=== PATIENT | male | born 1985 | race Hispanic/Latino ===

== ENCOUNTER 2023-01-31 15:39 | Inpatient (IN) | payer SELFPAY ==
--- NOTE | ~2023-01-31 | US_ITS ---
EXAMINATION: US abdomen limited DATE: 02/01/2023 09:33 INDICATION: Pancreatitis TECHNIQUE: Multiple grayscale and Doppler ultrasound images of the abdomen were obtained. COMPARISON: CT dated 01/31/2023 FINDINGS: Visualized body of the pancreas appears normal. The regions of the pancreatic head and tail are obscu red. Liver has normal echogenicity and contour, with a smooth surface. No liver lesion identified. No intrahepatic biliary duct dilation suspected. Portal venous flow was seen in the hepatopetal, normal direction and has normal Doppler waveform. The gallbladder is normal in appearance. There is no cho lelithiasis. The common bile duct measures 5 mm, which is normal. Sonographic Mcallister sign was reporte d as negative by the legal administrative assistant.Visualized portions of the right kidney demonstrate normal echogenic ity and contour with no hydronephrosis. The visualized proximal inferior vena cava is normal. IMPRESSION: 1. Normal right upper quadrant ultrasound. Reviewed, dictated and finalized at location A.
--- NOTE | ~2023-01-31 | CT_ITS ---
EXAMINATION: CT abdomen pelvis w con INDICATION: Epigastric abdominal pain and nausea TECHNIQUE: Computed tomographic images of the abdomen and pelvis were obtained after the administrati on of 100 cc of Omnipaque 350 intravenous contrast. The dose-length product (DLP) was 551.97 mGy-cm. Automated exposure control and iterative reconstruction technique were employed. COMPARISON: None available FINDINGS: Minimal dependent atelectasis is present in the lung bases. The heart size is normal. The l iver, spleen, gallbladder, and adrenal glands are normal. There is mild edema in the head of the panc reas. There is a small amount of fluid surrounding the pancreas and extending inferiorly into the ret roperitoneum on the right. There is the kidneys are unremarkable. No pathologically enlarged abdomina l or pelvic lymph nodes are identified. No free intraperitoneal gas or evidence of bowel obstruction. IMPRESSION: 1. Probable acute interstitial edematous pancreatitis with acute peripancreatic fluid collection. Dif ferential would include duodenitis. Reviewed, dictated and finalized at location F. IMPRESSION: 1. Probable acute interstitial edematous pancreatitis with acute peripancreatic fluid collection. Differential would include duodenitis.
--- NOTE | ~2023-01-31 | XR_ITS ---
EXAMINATION: XR chest 1V portable INDICATION: Fever TECHNIQUE: Portable AP chest at 1242 hours COMPARISON: None available FINDINGS: The lungs are free of acute opacities. No pleural effusion or pneumothorax. The cardiomedia stinal silhouette is normal. IMPRESSION: 1. No acute cardiopulmonary abnormality. Reviewed, dictated and finalized at location A.
[2023-01-31 15:49] VITALS: BP 132/81; PULSE 90; RESP 16; TEMP 36.7; O2SAT 97
--- NOTE | 2023-01-31 15:52 | ED.ABDPAIN ---
HPI - Abdominal Pain General Chief Complaint: Abdominal Pain Stated Complaint: ABD PAIN Time Seen by Provider: 01/31/23 15:50 Source: patient and family Mode of arrival: ambulatory Limitations: no limitations History of Present Illness HPI narrative: Patient is 37 years old male came to the emergency room complaining of epigastric pain pressure time started last night, intermittent, worse with eating, better with Pepto-Bismol and ibuprofen. Associated with chills, he denies any fever or vomiting. No history of abdominal surgery. Patient does not smoke or uses drugs but drinks occasionally. Related Data Home Medications Medication Instructions Recorded Confirmed No Home Medications 01/31/23 01/31/23 Allergies Allergy/AdvReac Type Severity Reaction Status Date / Time No Known Allergies Allergy Verified 01/31/23 15:58 Review of Systems Review of Systems: All systems reviewed & are unremarkable except as noted in HPI and below Exam Narrative: General appearance: Well-developed, well-nourished Skin: Normal color Head: Normocephalic, nontraumatic Eyes: Clear conjunctiva ENT: Oropharynx normal, ears normal, nose normal Neck: Supple, nontender Chest and respiratory: Airway patent, no respiratory distress, no accessory muscle use Heart: Regular rate/rhythm Abdomen: Soft, mild tenderness of the epigastric areas, no organomegaly, quiet bowel sounds Vascular: Normal peripheral pulses, normal capillary refill. Musculoskeletal: Normal range of motion, nontender back Neurologic: Alert and oriented ?3, EXECUTIVE DIRECTOR is normal as tested, no gross motor deficit Course Vital Signs Vital signs: Vital Signs Temperature 36.7 C 01/31/23 15:49 Pulse Rate 90 01/31/23 15:49 Respiratory Rate 16 01/31/23 15:49 Blood Pressure 132/81 01/31/23 15:49 Pulse Oximetry 97 01/31/23 15:49 Oxygen Delivery Room Air 01/31/23 15:49 Temperature 36.7 C 01/31/23 15:49 Pulse Rate 81 01/31/23 17:27 Respiratory Rate 18 01/31/23 17:27 Blood Pressure 128/87 01/31/23 17:27 Pulse Oximetry 96 01/31/23 17:27 Oxygen Delivery Room Air 01/31/23 15:49 MDM - Abdominal Pain MDM Narrative Medical decision making narrative: 37 years old male came with intermittent epigastric pain, differential diagnosis include gastritis, esophagitis, pancreatitis, cholecystitis Physical exam showed mild to moderate tenderness in the epigastric area. Work-up today showed increase WBC 15.3, glucose of 379, alkaline phosphatase 216, lipase 545 chest pain and shortness urine showed 3+ glucose, CAT scan of the abdomen and pelvis showed possible acute pancreatitis, duodenitis Patient is nondiabetic, diagnosis today is new diagnosis of diabetes, and pancreatitis. Patient will be admitted to the hospitalist for further evaluation. Patient have strong family history of diabetes Differential Diagnosis Differential diagnosis: Likely abdominal pain, constipation, diverticulitis, gastroenteritis and pancreatitis Lab Data 01/31/23 16:01 01/31/23 16:01 Labs: Lab Results 01/31/23 01/31/23 01/31/23 Range/Units 16:01 16:01 16:01 WBC Pending RBC Pending Hgb Pending Hct Pending MCV Pending MCH Pending MCHC Pending RDW Pending Plt Count Pending MPV Pending Immature Gran % (Auto) Pending Neut % (Auto) Pending Lymph % (Auto) Pending Ashe % (Auto) Pending Eos % (Auto) Pending Baso % (Auto) Pending Lymph # (Auto) Pending Ashe # (Auto) Pending Eos # (Auto) Pending Baso # (Auto) Pending Abs Immat Gran (auto) Pending Absol
[2023-01-31] MEDS: SODIUM CHLORIDE 0.9% IV 1,000 ML 999 ML IV CONT ×2 (16:02→18:30)
[2023-01-31 16:10] LABS: Appearance Urine Clear (Clear); Bacteria Urine None Seen /hpf; Bilirubin Urine Negative (Negative); Blood Urine 1+ (Negative); Color Urine Yellow (Yellow); Glucose Urine UA 3+ mg/dL (Negative); Ketones Urine Trace mg/dL (Negative); Leukocyte Esterase Ur Negative LEU/UL (Negative); Nitrate Urine Negative (Negative); Non Pathogenic Casts 0-2; Protein Urine Negative (Negative); RBC Urine 0-2 /hpf (0-2); Squamous Epithelial Cell Urine None seen /hpf (Few); Urobilinogen Urine 0.2 mg/dL (<2.0); WBC Urine 0-5 /hpf; pH Urine 5.5 (5.0-9.0)
[2023-01-31 16:22] LABS: Add Urine Microscopic? YES; Specific Grav Ur 1.044 (1.001-1.035)
[2023-01-31 16:29] LABS: Alanine Aminotransferase 39 U/L (6-50); Albumin Level 4.2 g/dL (3.5-5.1); Alkaline Phosphatase 216 U/L (38-126); Anion Gap 13 mmol/L (8-16); Aspartate Amino Transferase 25 U/L (17-59); Bilirubin,Total 0.6 mg/dL (0.2-1.3); Blood Urea Nitrogen 16 mg/dL (9-20); Calcium 8.9 mg/dL (8.4-10.2); Carbon Dioxide 22 mmol/L (22-30); Chloride 98 mmol/L (98-107); Estimated CRCL calculation 116 ml/min; Estimated Glomerular Filt Rate > 60; Glucose 379 mg/dL (65-110); Lipase 545 U/L (23-300); Sodium 133 mmol/L (137-145)
[2023-01-31 17:13] LABS: Basophils Absolute Auto 0.1 K/mm3 (0.0-0.1); Basophils Percent Auto 0.5 % (0.2-1.2); Eosinophils Absolute Auto 0.5 K/mm3 (0-0.3); Eosinophils Percent Auto 3.1 % (0-4.4); Immature Granulocyte Absolute 0.09 K/mm3 (0.00-0.031); Immature Granulocyte Percent A 0.6 % (0-0.5); Lymphocytes Absolute Auto 3.59 K/mm3 (0.9-3.2); Lymphocytes Percent Auto 23.5 % (18.3-44.2); Monocytes Percent Auto 13.1 % (2.6-8.5); Neutrophils Percent Auto 59.2 % (45.5-73.1); Platelet Count Result 176 k/mm3 (150-375); Red Blood Count 4.54 M/mm3 (4.6-6.20); Red Cell Distribution Width 14.4 % (11.5-14.5); White Blood Count 15.3 K/mm3 (4.5-10.0)
[2023-01-31 17:27] VITALS: BP 128/87; PULSE 81; RESP 18; O2SAT 96
[2023-01-31 18:03] LABS: Hemoglobin 11.5 g/dL (14.0-18.0)
[2023-01-31 18:04] LABS: Hematocrit 27.3 % (42.0-52.0); Mean Corpuscular HGB Conc 42.1 g/dl (32-36); Mean Corpuscular Hemoglobin 34.7 pg (26-34)
[2023-01-31] MEDS: PANTOPRAZOLE SODIUM IV 40 MG VIAL IV PUSH (18:30)
[2023-01-31 18:49] VITALS: BP 129/83; PULSE 84; RESP 18; O2SAT 99
--- NOTE | 2023-01-31 19:00 | PM.IMHP ---
H&P: HPI History of Present Illness Date/Time: 01/31/23 19:00 Chief Complaint: Abdominal pain. Narrative: This is a pleasant 37-year-old male with no reported medical history who presented to the emergency department via private vehicle from home for evaluation of abdominal pain. Patient provides the following history. He reports a fairly sudden onset of nausea and epigastric pain last evening which he describes as severe pressure. The pain does not radiate. It is worse with palpation, movement, and eating. Ibuprofen and Pepto Bismol did not help his symptoms much. CT of the abdomen and pelvis showed probable acute interstitial edematous pancreatitis with acute peripancreatic fluid collection with a differential to include duodenitis. His serum was lipemic and labs were significant for a lipase of 545, WBC 15.3, hemoglobin 11.5, sodium 133, glucose 379, alkaline phosphatase 216, triglycerides 2606. He drinks 8 beers or so on the weekends. He does not take medications at home. He has no known history of pancreatitis but reports have a similar episode about 7 months ago which was self-limiting, not as severe, and it only lasted a day or two. He has occasional heart burn but nothing significant. He has no history of diabetes but both of his parents are diabetics. He endorses an unintentional 60 pound weight loss in the last 2 years. He has always consumed a lot of water and that is unchanged. No blurry vision, neuropathy symptoms, rashes, or non-healing wounds. At this time he is being admitted to the ICU on insulin drip for hypertriglyceridemia in the setting of pancreatitis. Review of Systems Review of Systems: Twelve systems were reviewed. No fever, chills, or sweats. Reports a mild, scratchy throat and some sinus congestion. No cough or shortness of breath. No chest pain. Except as documented, all other systems were reviewed and are negative. [facility] Past Medical History Medical History (Updated 01/31/23 @ 22:50 by Shayy Cook PA-C) No significant past medical history Surgical History Surgical History (Updated 01/31/23 @ 22:45 by Shayy Cook PA-C) No history of previous surgery Family History Family History Father Diabetes mellitus Mother Diabetes mellitus Heart disease Hypertension Social History Social History (Updated 01/31/23 @ 22:46 by Shayy Cook PA-C) Social History: Surrogate medical decision maker: Angeles Pagan, friend. Code status: Full code. Smoking status: Never smoker Alcohol intake: current Drinks per week: 8 Substance use: never Lack of Transportation: No Lack of Food: Never True Current Housing: Decline to Answer Concerned About Future Housing: Decline to Answer Difficulty Paying Gas/Electric Bills: Decline to Answer Difficulty Paying for Meds: Decline to Answer Currently Unemployed: Decline to Answer Education: Decline to Answer Difficulty w/ Childcare or Family Care: Decline to Answer Additional living arrangements comments: Lives in [place] with a cousin. Additional occupation/education comments: Landscaping. Spiritual care concerns: No Meds Home Medications and Allergies Home Medications Medication Instructions Recorded Confirmed Type No Home Medications 01/31/23 01/31/23 History Allergies Allergy/AdvReac Type Severity Reaction Status Date / Time No Known Allergies Allergy Verified 01/31/23 15:58 Vital Signs Vital Signs - 24 hr 01/31/23 15:49 01/31/23 17:27 Temperature 98.1 F Pulse Rate 90 81 Respiratory Rate 16 18 Blood Pressure 132/81 128/87 Pulse Oximetry 97 96 Oxygen Delivery Room Air Exam Narrative: General: Mildly ill-appearing gentleman the semi-Tran position in bed. Weight: 83.1 kg. BMI: 29.6. HEENT: Normocephalic, atraumatic. PERRL, EOMI. Sclera anicteric. Conjunctiva mildly injected. Tacky mucous membranes. Neck: Suppl
[2023-01-31] MEDS: SODIUM CHLORIDE 0.9% IV 1,000 ML 150 ML IV CONT (19:04)
[2023-01-31 19:17] LABS: Triglycerides 2606 mg/dL (<150)
[2023-01-31 20:07] LABS: Anion Gap 10 mmol/L (8-16); Blood Urea Nitrogen 15 mg/dL (9-20); Calcium 7.7 mg/dL (8.4-10.2); Carbon Dioxide 22 mmol/L (22-30); Chloride 103 mmol/L (98-107); Estimated CRCL calculation 158 ml/min; Estimated Glomerular Filt Rate > 60; Glucose 256 mg/dL (65-110); Magnesium 1.9 mg/dL (1.6-2.3); Phosphorus 3.5 mg/dL (2.5-4.5); Potassium 3.8 mmol/L (3.4-5.0); Sodium 135 mmol/L (137-145)
--- NOTE | 2023-01-31 20:19 | PC.NURSE ---
consulted hospitalist about a sugar of 243 mg/dL- states to start insulin at 5 units VORB.
[2023-01-31] MEDS: INSULIN HUMAN REGULAR (*BKC) 100 UNITS in SODIUM CHLORIDE 0.9% IV 99 ML IV CONT (20:21)
[2023-01-31 20:31] LABS: Glucose Point of Care 243 mg/dl (65-105)
--- NOTE | 2023-01-31 20:32 | PC.NURSE ---
This patient, Sharon David, was admitted to Intensive Care Unit-11. Patient/family oriented to hospital policies and general routines including ID bracelet, bed and alarms, visiting hours, pain management, procedures, bathroom and other care routines, personal items, smoking policy, room service/diet, and visiting hours. Information on how to activate the Rapid Response Team has been discussed. Patient/Family are encouraged to report perceived risks to care and to ask questions if they do not understand what they are told or what they should do.
[2023-01-31 20:41] VITALS: BP 142/64; PULSE 82; RESP 16; O2SAT 100
[2023-01-31 20:45] VITALS: BP 137/80; PULSE 83; RESP 18; TEMP 36.8; O2SAT 98; BMI 29.5
[2023-01-31] MEDS: HYDROmorphone HCL INJ (*CRX) 1 MG/ML SYR 0.5 MG IV PUSH (21:06)
[2023-01-31] MEDS: KCL 20 MEQ/D5/0.45% SOD CHL 1,000 ML 150 ML IV CONT (21:06)
[2023-01-31 21:17] LABS: Glucose Point of Care 258 mg/dl (65-105)
[2023-01-31 22:00] VITALS: BP 126/75; PULSE 100; RESP 23; O2SAT 95
[2023-01-31 22:16] LABS: Glucose Point of Care 239 mg/dl (65-105)
[2023-02-01] VITALS (14 sets, daily range): BP systolic 117–139; BP diastolic 55–84; PULSE 92–111; RESP 18–28; TEMP 36.4–37.3; O2SAT 94–98
[2023-02-01 00:29] LABS: Glucose Point of Care 221 mg/dl (65-105)
[2023-02-01 00:29] LABS: Glucose Point of Care 202 mg/dl (65-105)
[2023-02-01 01:30] LABS: Glucose Point of Care 183 mg/dl (65-105)
[2023-02-01 02:23] LABS: Glucose Point of Care 147 mg/dl (65-105)
[2023-02-01] MEDS: MORPHINE SULFATE (*CRX) 4 MG/ML INJ IV PUSH ×4 (02:33→22:08)
[2023-02-01 03:22] LABS: Glucose Point of Care 134 mg/dl (65-105)
[2023-02-01] MEDS: KCL 20 MEQ/D5/0.45% SOD CHL 1,000 ML 150 ML IV CONT ×3 (03:53→17:34)
[2023-02-01 04:54] LABS: Glucose Point of Care 141 mg/dl (65-105)
[2023-02-01 05:57] LABS: Glucose Point of Care 175 mg/dl (65-105)
[2023-02-01 06:13] LABS: Alanine Aminotransferase 29 U/L (6-50); Albumin Level 3.7 g/dL (3.5-5.1); Alkaline Phosphatase 122 U/L (38-126); Anion Gap 6 mmol/L (8-16); Aspartate Amino Transferase 24 U/L (17-59); Bilirubin,Total 0.7 mg/dL (0.2-1.3); Blood Urea Nitrogen 9 mg/dL (9-20); Calcium 7.9 mg/dL (8.4-10.2); Carbon Dioxide 25 mmol/L (22-30); Chloride 103 mmol/L (98-107); Cholesterol 145 mg/dL (0-200); Estimated CRCL calculation 208 ml/min; Estimated Glomerular Filt Rate > 60; Glucose 153 mg/dL (65-110); Lipase 388 U/L (23-300); Magnesium 1.8 mg/dL (1.6-2.3); Potassium 3.5 mmol/L (3.4-5.0); Sodium 134 mmol/L (137-145)
[2023-02-01 06:37] LABS: Thyroid Stimulating Hormone Reflex 0.392 uIU/mL (0.465-4.68)
[2023-02-01 07:55] LABS: Glucose Point of Care 154 mg/dl (65-105)
[2023-02-01 08:08] LABS: Hematocrit 40.9 % (42.0-52.0); Hemoglobin 15.3 g/dL (14.0-18.0); Red Blood Count 4.81 M/mm3 (4.6-6.20); White Blood Count 16.8 K/mm3 (4.5-10.0)
[2023-02-01 08:09] LABS: Mean Corpuscular HGB Conc 37.4 g/dl (32-36); Mean Corpuscular Hemoglobin 31.8 pg (26-34); Mean Platelet Volume 12.9 fl (7.4-10.4); Platelet Count Result 166 k/mm3 (150-375); Red Cell Distribution Width 15.5 % (11.5-14.5)
--- NOTE | 2023-02-01 08:32 | WPDCNINT ---
Assessment and Plan Assessment and plan (1) Acute pancreatitis: Code(s): K85.90 - Acute pancreatitis without necrosis or infection, unspecified Status: Acute Assessment and Plan: Acute pancreatitis likely secondary to hypertriglyceridemia although alcohol is a possibility CT scan shows Probable acute interstitial edematous pancreatitis with acute peripancreatic fluid collection. Differential would include duodenitis. Right upper quadrant ultrasound is ordered and pending LFTs unremarkable Patient clinically feels better and denies any nausea vomiting at this time although his abdominal pain is per present but improved Will do a trial of clear liquid diet and see if patient tolerates Hold antibiotics at this time-see below IV fluids Treat hypertriglyceridemia as below (2) Hypertriglyceridemia: Code(s): E78.1 - Pure hyperglyceridemia Status: Acute Assessment and Plan: Triglyceride level to 2606 on presentation Could be hereditary hyperlipidemia as patient has family history or this could be due to uncontrolled diabetes Continue insulin infusion with IV fluids with dextrose to try to bring down triglyceride level below 1000 Will start p.o. medications eventually Monitor daily levels (3) New onset type 2 diabetes mellitus: Code(s): E11.9 - Type 2 diabetes mellitus without complications Status: Acute Assessment and Plan: On presentation patient's blood sugar was 379. No history of diabetes mellitus but does have a strong family history of diabetes HbA1c is pending Continue insulin infusion at this time (4) Leukocytosis: Code(s): D72.829 - Elevated white blood cell count, unspecified Status: Acute Assessment and Plan: Likely secondary to SIRS Patient is afebrile Will hold antibiotics at this time (5) Electrolyte abnormality: Code(s): E87.8 - Other disorders of electrolyte and fluid balance, not elsewhere classified Status: Acute Assessment and Plan: Replace low potassium and magnesium Serial electrolyte monitoring (6) Duodenitis: Code(s): K29.80 - Duodenitis without bleeding Status: Acute Assessment and Plan: Continue PPI Plan DVT prophylaxis -Lovenox Stress ulcer prophylaxis -on PPI Nutrition - NPO. trial of clear liquid diet Code Status - Full Code Total Critical Care Time -30 minutes Due to a high probability of clinically significant, life threatening deterioration, the patient required my highest level of preparedness to intervene emergently and I personally spent this critical care time directly and personally managing the patient. This critical care time included obtaining a history; examining the patient; pulse oximetry; ordering and review of studies; arranging urgent treatment with development of a management plan; evaluation of patient's response to treatment; frequent reassessment; and discussions with other providers. It was exclusive of separately billable procedures and treating other patients and teaching time. Please see Assessment and Plan section and the rest of the note for further information on patient assessment and treatment Manager Of Applications Development Consult Note Consult date: 02/01/23 Reason for consult: Pancreatitis, hypertriglyceridemia HPI: Sharon David is a 37 year old male with no significant past medical history presented yesterday with chief complaint abdominal pain. Patient states the pain started day before yesterday for eating food and was in the middle and on the right side of her abdomen. He states he had a similar episode a while ago but had resolved by itself. Pain was associated with nausea vomiting and was worse with movement. He tried ibuprofen and Pepto-Bismol but did not help. Pain was 9-10 of severe, sharp no radiation. Patient presented to ER and was found to be having elevated lipase, blood glucose and triglyceride level. CT scan confirmed pancreatitis. Patient was initia
[2023-02-01] MEDS: ENOXAPARIN 40 MG/0.4 ML SYRINGE SUB-Q (08:57)
[2023-02-01] MEDS: MAGNESIUM SULF 1 GM/D5W 100 ML 1 GM/100 ML BAG IVPB (09:23)
[2023-02-01] MEDS: PANTOPRAZOLE SODIUM IV 40 MG VIAL IV PUSH (09:23)
[2023-02-01] MEDS: POTASSIUM CHLORIDE INJ 40 MEQ in SODIUM CHLORIDE 0.9% IV 500 ML 130 MEQ IVPB (09:23)
[2023-02-01 09:24] LABS: Triglycerides 1016 mg/dL (<150)
[2023-02-01 09:55] LABS: Glucose Point of Care 181 mg/dl (65-105)
[2023-02-01 09:55] LABS: Glucose Point of Care 157 mg/dl (65-105)
[2023-02-01] MEDS: INSULIN HUMAN REGULAR (*BKC) 100 UNITS in SODIUM CHLORIDE 0.9% IV 99 ML 7.6 UNITS IV CONT (10:53)
[2023-02-01 11:20] LABS: Glucose Point of Care 158 mg/dl (65-105)
[2023-02-01 12:06] LABS: Glucose Point of Care 168 mg/dl (65-105)
[2023-02-01 12:06] LABS: Glucose Point of Care 175 mg/dl (65-105)
[2023-02-01 12:20] LABS: Anion Gap 7 mmol/L (8-16); Blood Urea Nitrogen 5 mg/dL (9-20); Calcium 8.1 mg/dL (8.4-10.2); Carbon Dioxide 25 mmol/L (22-30); Chloride 101 mmol/L (98-107); Estimated CRCL calculation 208 ml/min; Estimated Glomerular Filt Rate > 60; Glucose 143 mg/dL (65-110); Potassium 3.7 mmol/L (3.4-5.0); Sodium 133 mmol/L (137-145)
[2023-02-01 13:05] LABS: Glucose Point of Care 228 mg/dl (65-105)
[2023-02-01 14:07] LABS: Glucose Point of Care 251 mg/dl (65-105)
[2023-02-01 15:07] LABS: Glucose Point of Care 165 mg/dl (65-105)
[2023-02-01 15:29] LABS: Total Triiodothyronine (T3) 1.09 NG/ML (0.97-1.69)
--- NOTE | 2023-02-01 16:41 | PM.IMPN ---
Progress Note: A&P Assessment and Plan (1) Acute pancreatitis: Code(s): K85.90 - Acute pancreatitis without necrosis or infection, unspecified Status: Acute Assessment and Plan: Acute pancreatitis likely secondary to hypertriglyceridemia although alcohol is a possibility. CT Abdomen/pelvis shows probable acute interstitial edematous pancreatitis with acute peripancreatic fluid collection. Differential would include duodenitis. Right upper quadrant ultrasound is pending LFTs unremarkable Lipase 545 -> 388 Started on clear liquid diet Treat hypertriglyceridemia as below (2) Hypertriglyceridemia: Code(s): E78.1 - Pure hyperglyceridemia Status: Acute Assessment and Plan: Triglyceride level to 2606 on presentation Could be hereditary hyperlipidemia as patient has family history or this could be due to uncontrolled diabetes Continue insulin infusion with IV fluids with dextrose to try to bring down triglyceride level below 1000 Repeat Trig 1016. Will start p.o. medications eventually Monitor daily levels (3) New onset type 2 diabetes mellitus: Code(s): E11.9 - Type 2 diabetes mellitus without complications Status: Acute Assessment and Plan: On presentation patient's blood sugar was 379. No history of diabetes mellitus but does have a strong family history of diabetes HbA1c is pending Continue insulin infusion at this time (4) Leukocytosis: Code(s): D72.829 - Elevated white blood cell count, unspecified Status: Acute Assessment and Plan: Likely secondary to SIRS Patient is afebrile Will hold antibiotics at this time (5) Duodenitis: Code(s): K29.80 - Duodenitis without bleeding Status: Acute Assessment and Plan: Possible duodenitis by CT scan. Continue PPI Plan DVT prophylaxis -Lovenox Stress ulcer prophylaxis -on PPI Nutrition - clear liquid diet Code Status - Full Code Subjective Date/time seen: 02/01/23 0830 Interval history: 37yo male here for abdominal pain. No nausea or vomiting. Remains on insulin drip. He feels much better today. Abdominal pain is persistent but improved. He mentions that he was checking his glucose a year ago because he has a strong family history of diabetes. He believes his glucose was running in the 200 range at that time. He does drink quite a bit of water but denies polydipsia. He does have polyuria from the increased water intake. No change recently in the symptoms. Exam Narrative: AF 98.5 125/77 111 26 96% ra Gen - NARD Chest - CTA bilaterally, nml RR CV - RRR S1/S2 Abd - Soft, diffuse tenderness worse in the RUQ without referred pain or rebound. Ext - No pedal edema Neuro - Alert and oriented. Nonfocal exam. Psych - Nml mood and affect Skin - Warm and dry Objective Data Vital Signs Vital Signs: Vital Signs - 24 hr 01/31/23 17:27 01/31/23 18:49 01/31/23 20:41 Temperature Pulse Rate 81 84 82 Respiratory Rate 18 18 16 Blood Pressure 128/87 129/83 142/64 H Pulse Oximetry 96 99 100 Oxygen Delivery 01/31/23 20:40 01/31/23 20:45 01/31/23 22:00 Temperature 98.3 F Pulse Rate 83 100 Respiratory Rate 18 Blood Pressure 137/80 Pulse Oximetry 98 Oxygen Delivery Room Air 01/31/23 22:00 02/01/23 00:00 02/01/23 00:00 Temperature Pulse Rate 100 103 H Respiratory Rate 23 H Blood Pressure 126/75 Pulse Oximetry 95 Oxygen Delivery Room Air 02/01/23 00:00 02/01/23 02:00 02/01/23 02:00 Temperature 98.9 F Pulse Rate 103 H 102 H 102 H Respiratory Rate 26 H 21 H Blood Pressure 127/75 128/81 Pulse Oximetry 96 97 Oxygen Delivery 02/01/23 04:00 02/01/23 04:00 02/01/23 04:00 Temperature 98.9 F Pulse Rate 99 101 H Respiratory Rate 22 H Blood Pressure 127/76 Pulse Oximetry 94 Oxygen Delivery Room Air 02/01/23 06:00 02/01/23 06:00 02/01/23 07:34 Temperature Pulse Rate 97 97
[2023-02-01 17:04] LABS: Glucose Point of Care 138 mg/dl (65-105)
[2023-02-01 17:04] LABS: Glucose Point of Care 148 mg/dl (65-105)
[2023-02-01 18:06] LABS: Glucose Point of Care 170 mg/dl (65-105)
[2023-02-01 19:16] LABS: Anion Gap 6 mmol/L (8-16); Blood Urea Nitrogen 2 mg/dL (9-20); Calcium 8.4 mg/dL (8.4-10.2); Carbon Dioxide 23 mmol/L (22-30); Chloride 103 mmol/L (98-107); Estimated CRCL calculation 208 ml/min; Estimated Glomerular Filt Rate > 60; Glucose 150 mg/dL (65-110); Sodium 132 mmol/L (137-145)
[2023-02-01 19:51] LABS: Glucose Point of Care 131 mg/dl (65-105)
[2023-02-01 20:05] LABS: Glucose Point of Care 108 mg/dl (65-105)
[2023-02-01 21:02] LABS: Glucose Point of Care 120 mg/dl (65-105)
[2023-02-01 22:15] LABS: Glucose Point of Care 145 mg/dl (65-105)
[2023-02-01] MEDS: INSULIN HUMAN REGULAR (*BKC) 100 UNITS in SODIUM CHLORIDE 0.9% IV 99 ML 7.7 UNITS IV CONT (22:17)
--- NOTE | 2023-02-01 22:50 | ECHO_ITS ---
Patient Info Name: Sharon David Age: 37 years : 1985 Gender: Male Ht: 66 in Wt: 183 lbs BSA: 1.99 m2 HR: 94 bpm BP: 122 / 79 mmHg Heart Rhythm: Sinus Rhythm Technical Quality: Good Exam Date: 02/01/2023 10:13 AM Exam Location: [facility] Card Pulmonary Patient Status: Inpatient Admit Date: 01/31/2023 Staff Ordering Physician: Shayy Cook PA-C Corporate Communications Specialist: Janiya Vieyra RDCS Attending Provider: Dieudonne Araujo MD Referring Physician: Joey CORTEZ; Exam Type: CA echo doppler color flow Study Info Indications R01.0 - Benign and innocent cardiac murmurs Complete two-dimensional, color flow and Doppler transthoracic echocardiogram is performed. Summary 1. Complete two-dimensional, color flow and Doppler transthoracic echocardiogram is performed. 2. Normal left ventricular size and thickness with good contractility of all segments. Estimated ejection fraction 60-65%. Normal diastolic function. 3. Trivial mitral and tricuspid regurgitation. 4. Borderline left atrial enlargement. 5. Borderline pulmonary hypertension. 6. Normal sinus rhythm. Left Ventricle Left ventricular chamber dimension is normal. Left ventricular systolic function is normal, estimated at 60-65%. There is no increased left ventricular wall thickness. Left ventricular septal wall motion is normal. The left ventricular diastolic function is normal. Right Ventricle Right ventricular chamber dimension is normal. Right ventricular systolic function is normal. Left Atria Left atrial chamber dimension is normal. Right Atria Right atrial chamber dimension is normal. Aortic Valve The aortic valve is trileaflet. There is no aortic valve sclerosis. There is no aortic valve stenosis. There is no aortic valve regurgitation. Pulmonic Valve The pulmonic valve is normal. There is no pulmonic valve stenosis. There is no pulmonic regurgitation. Mitral Valve The mitral valve has normal leaflets. There is no mitral valve stenosis. There is trace mitral valve regurgitation. Tricuspid Valve The tricuspid valve leaflets are normal. There is no significant tricuspid valve stenosis. There is trace tricuspid valve regurgitation. Mild pulmonary hypertension, estimated pulmonary arterial systolic pressure is 38 mmHg. Pericardium/Pleural The pericardium appears normal. There is no pericardial effusion. Inferior Vena Cava Normal inferior vena cava with >50% collapse upon inspiration consistent with Empty right atrial pressure, 10 mmHg. Aorta The aortic root size at the sinus of Valsalva is normal. The prox ascending aorta size is normal. Left Ventricular Outflow Tract Name Value Normal LVOT 2D LVOT Diameter 1.9 cm LVOT Doppler LVOT Peak Gradient 16 mmHg LVOT Mean Gradient 8 mmHg LVOT VTI 28 cm LVOT VTI/AV VTI Ratio 0.9 LVOT Stroke Volume 80 ml LVOT CO 7.2 l/min LVOT CI 3
[2023-02-01 23:02] LABS: Glucose Point of Care 141 mg/dl (65-105)
[2023-02-02] VITALS (10 sets, daily range): BP systolic 111–133; BP diastolic 57–84; PULSE 84–115; RESP 18–26; TEMP 36.5–39.4; O2SAT 93–100
[2023-02-02] LABS: Glucose Point of Care 142 mg/dl (65-105)
[2023-02-02] MEDS: KCL 20 MEQ/D5/0.45% SOD CHL 1,000 ML 150 ML IV CONT ×2 (00:24→07:15)
[2023-02-02 01:06] LABS: Glucose Point of Care 143 mg/dl (65-105)
[2023-02-02 02:12] LABS: Glucose Point of Care 123 mg/dl (65-105)
[2023-02-02 02:16] LABS: Hematocrit 38.1 % (42.0-52.0); Hemoglobin 13.5 g/dL (14.0-18.0); Mean Corpuscular HGB Conc 35.4 g/dl (32-36); Mean Corpuscular Hemoglobin 29.1 pg (26-34); Mean Corpuscular Volume 82.1 fl (80-100); Mean Platelet Volume 11.6 fl (7.4-10.4); Platelet Count Result 164 k/mm3 (150-375); Red Blood Count 4.64 M/mm3 (4.6-6.20); Red Cell Distribution Width 15.2 % (11.5-14.5); White Blood Count 13.1 K/mm3 (4.5-10.0)
[2023-02-02 02:57] LABS: Alanine Aminotransferase 33 U/L (6-50); Albumin Level 4.7 g/dL (3.5-5.1); Alkaline Phosphatase 62 U/L (38-126); Anion Gap 5 mmol/L (8-16); Aspartate Amino Transferase 63 U/L (17-59); Bilirubin,Total 2.7 mg/dL (0.2-1.3); Calcium 8.1 mg/dL (8.4-10.2); Carbon Dioxide 24 mmol/L (22-30); Chloride 101 mmol/L (98-107); Estimated CRCL calculation 208 ml/min; Estimated Glomerular Filt Rate > 60; Glucose 124 mg/dL (65-110); Lipase 88 U/L (23-300); Sodium 130 mmol/L (137-145)
[2023-02-02 03:00] LABS: Glucose Point of Care 129 mg/dl (65-105)
[2023-02-02 03:43] LABS: Blood Urea Nitrogen > 2 mg/dL (9-20)
[2023-02-02 04:18] LABS: Glucose Point of Care 124 mg/dl (65-105)
--- NOTE | 2023-02-02 04:45 | PC.NURSE ---
Placed orders for redraw for potassium and triglycerides because they had hemolyzed.
[2023-02-02 05:06] LABS: Glucose Point of Care 113 mg/dl (65-105)
[2023-02-02 06:06] LABS: Glucose Point of Care 132 mg/dl (65-105)
[2023-02-02 07:00] LABS: Glucose Point of Care 127 mg/dl (65-105)
[2023-02-02 07:32] LABS: Triglycerides 464 mg/dL (<150)
[2023-02-02] MEDS: ENOXAPARIN 40 MG/0.4 ML SYRINGE SUB-Q (07:58)
[2023-02-02] MEDS: PANTOPRAZOLE SODIUM IV 40 MG VIAL IV PUSH (07:58)
[2023-02-02 08:06] LABS: Glucose Point of Care 137 mg/dl (65-105)
[2023-02-02 08:15] LABS: Potassium 3.5 mmol/L (3.4-5.0)
[2023-02-02 08:18] LABS: Bilirubin Indirect 0.5 mg/dL (0-1.1)
--- NOTE | 2023-02-02 08:35 | WPDINTPN ---
Progress Note: A&P Assessment and Plan (1) Acute pancreatitis: Code(s): K85.90 - Acute pancreatitis without necrosis or infection, unspecified Status: Acute Assessment and Plan: Acute pancreatitis likely secondary to hypertriglyceridemia although alcohol is a possibility CT scan shows Probable acute interstitial edematous pancreatitis with acute peripancreatic fluid collection. Differential would include duodenitis. Right upper quadrant ultrasound was unremarkable LFTs reviewed Lipase has normalized Patient clinically feels better and denies any nausea vomiting at this time and his abdominal pain is improved Currently on clear liquid diet and will try to advance as tolerated Continue to hold antibiotics at this time-see below IV fluids will be continued but decrease the dose Treat hypertriglyceridemia as below (2) Hypertriglyceridemia: Code(s): E78.1 - Pure hyperglyceridemia Status: Acute Assessment and Plan: Triglyceride level to 2606 on presentation Could be hereditary hyperlipidemia as patient has family history or this could be due to uncontrolled diabetes Level decreased to 464 Will discontinue insulin infusion and switch him to subcutaneous insulin Will start p.o. medications once p.o. intake consistent Monitor daily levels (3) New onset type 2 diabetes mellitus: Code(s): E11.9 - Type 2 diabetes mellitus without complications Status: Acute Assessment and Plan: On presentation patient's blood sugar was 379. No history of diabetes mellitus but does have a strong family history of diabetes HbA1c is pending Switched to Lantus and sliding scale (4) Leukocytosis: Code(s): D72.829 - Elevated white blood cell count, unspecified Status: Acute Assessment and Plan: Likely secondary to SIRS. Patient had a low-grade fever overnight Blood culture sent overnight and pending Patient appears nontoxic and clinically improving Will hold antibiotics at this time (5) Electrolyte abnormality: Code(s): E87.8 - Other disorders of electrolyte and fluid balance, not elsewhere classified Status: Acute Assessment and Plan: Replace low potassium (6) Duodenitis: Code(s): K29.80 - Duodenitis without bleeding Status: Acute Assessment and Plan: Continue PPI Plan DVT prophylaxis -Lovenox Stress ulcer prophylaxis -on PPI Nutrition -advance diet as tolerated Code Status - Full Code Incentive spirometry, up in chair Transfer out ICU today Subjective Date/time seen: 02/02/23 Remains on insulin infusion overnight and IV fluid. Tolerating clear liquid diet He states he feels much better his pain is now down to 3 out of 10. He denies any other complaint. Patient denies fever, chest pain, shortness of breath, cough, nausea vomiting,, diarrhea, headache or constipation. He states he would like to eat regular food. Good urine output Episodes of low-grade fever overnight Other vitals are stable he is on room air Review of Systems Review of Systems: All systems reviewed & are unremarkable except as noted in HPI and below Exam Narrative: General: Pt is alert awake and in NAD Lungs/Chest: Trachea central Clear BS B/L, No crackles or wheezing. Cardiac: RRR. Normal S1 S2. No murmurs Circulation: Pedal pulses are intact and symmetrical. Abdomen: Soft, very mild tenderness to deep palpation in the right upper quadrant and right flank but significantly improved as compared to yesterday, present bowel sounds.. Nondistended guarding or rigidity Extremities: No clubbing, cyanosis or edema. Warm : Agosto in place Neurologic: Follows commands. Moves all 4 extremities PERRL AO x3 Skin: No Rash Objective Data Vital Signs Vital Signs: Vital Signs - 24 hr 02/01/23 10:00 02/01/23 10:00 02/01/23 12:00 Temperature 36.9 C Pulse Rate 94 98 104 H Respiratory Rate 28 H Blood Pressure 131/83 139/82 Pulse Oximetry 96 97 Oxygen
[2023-02-02] MEDS: LACTATED RINGERS 1,000 ML 50 ML IV CONT (09:05)
[2023-02-02] MEDS: POTASSIUM CHLORIDE 20 MEQ PACKET (FOR LIQUID) 40 MEQ FEED TUBE (09:05)
[2023-02-02] MEDS: INSULIN GLARGINE (*BKC) 100 UNITS/ML 20 UNITS SUB-Q (09:05)
--- NOTE | 2023-02-02 12:26 | PM.IMPN ---
Progress Note: A&P Assessment and Plan (1) Acute pancreatitis: Code(s): K85.90 - Acute pancreatitis without necrosis or infection, unspecified Status: Acute Assessment and Plan: Acute pancreatitis likely secondary to hypertriglyceridemia although alcohol is a possibility. CT Abdomen/pelvis shows acute interstitial edematous pancreatitis with acute peripancreatic fluid collection. Differential includes duodenitis. RUQ US: Normal LFTS have been normal but AST up to 63 and TB 2.7 today. IB 0.5 Lipase 545 on admission now normal. Abd pain resolving. TG levels trending down Now with fevers. (2) Fever: Code(s): R50.9 - Fever, unspecified Status: Acute Assessment and Plan: Fever to 102.9 last night. Etiology unclear. -LFTs slightly abnormal with elevated bili. IBili normal. -CXR clear. BCx pending. No symptoms of UTI -On Lovenox of DVT prophylaxis. -COVID, influenza and RSV negative -Related to the pancreatitis? but pain better. -follow. hold on abx. (3) Hypertriglyceridemia: Code(s): E78.1 - Pure hyperglyceridemia Status: Acute Assessment and Plan: Triglyceride level was 2606 on presentation Could be hereditary hyperlipidemia as patient has family history or this could be due to uncontrolled diabetes Treated with insulin infusion and IV fluid Repeat TG down to 464 today. Will start p.o. medications at discharge Monitor daily levels (4) New onset type 2 diabetes mellitus: Code(s): E11.9 - Type 2 diabetes mellitus without complications Status: Acute Assessment and Plan: On presentation patient's blood sugar was 379. No history of DM but does have a strong family history of diabetes HbA1c is pending Changed from insulin drip to Lantus. Continue Lantus at current dose. (5) Leukocytosis: Code(s): D72.829 - Elevated white blood cell count, unspecified Status: Acute Assessment and Plan: WBC up to 16K Likely secondary to SIRS WBC better but now having fevers. Will continue to hold antibiotics at this time (6) Duodenitis: Code(s): K29.80 - Duodenitis without bleeding Status: Acute Assessment and Plan: Possible duodenitis by CT scan. Continue PPI Plan DVT prophylaxis -Lovenox Stress ulcer prophylaxis -on PPI Nutrition - low fat diet Code Status - Full Code Subjective Date/time seen: 02/02/23 12:26 Interval history: 37yo male here for abdominal pain found to have pancreatitis, hyperTG and DM. No problems overnight. No further abominal pain. No cough. No dysuria. No rash. Exam Narrative: Tm 102.9 99.3 122/84 99 24 94% ra Gen - NARD Chest - CTA bilaterally, nml RR CV - RRR S1/S2 Abd - Soft, minimal abd tenderness. Ext - No pedal edema Neuro - Alert and oriented. Nonfocal exam. Psych - Nml mood and affect Skin - Warm and dry Objective Data Vital Signs Vital Signs: Vital Signs - 24 hr 02/01/23 14:00 02/01/23 14:00 02/01/23 16:40 Temperature Pulse Rate 111 H 111 H Respiratory Rate 26 H Blood Pressure 125/77 Pulse Oximetry 94 96 Oxygen Delivery Room Air 02/01/23 16:00 02/01/23 16:00 02/01/23 18:00 Temperature 99.2 F Pulse Rate 106 H 107 H 99 Respiratory Rate 25 H Blood Pressure 121/71 Pulse Oximetry 94 Oxygen Delivery 02/01/23 18:00 02/01/23 20:00 02/01/23 20:00 Temperature 98.4 F Pulse Rate 99 92 Respiratory Rate 25 H 18 Blood Pressure 117/55 L 134/84 Pulse Oximetry 96 98 96 Oxygen Delivery Room Air 02/01/23 20:00 02/01/23 22:00 02/01/23 22:00 Temperature 97.5 F L Pulse Rate 92 108 H 103 H Respiratory Rate 25 H Blood Pressure 130/81 Pulse Oximetry 95 Oxygen Delivery 02/01/23 22:00 02/02/23 01:00 02/02/23 00:00 Temperature 99.7 F H Pulse Rate 108 H 104 H Respiratory Rate Blood Pressure 122/78 Pulse Oximetry 96 Oxygen Delivery Room Air 02/02/23 00:00 02/02/23
[2023-02-02 12:48] LABS: Anion Gap 6 mmol/L (8-16); Blood Urea Nitrogen 2 mg/dL (9-20); Calcium 8.8 mg/dL (8.4-10.2); Carbon Dioxide 26 mmol/L (22-30); Chloride 99 mmol/L (98-107); Estimated CRCL calculation 213 ml/min; Estimated Glomerular Filt Rate > 60; Glucose 206 mg/dL (65-110); Sodium 131 mmol/L (137-145)
[2023-02-02 12:55] LABS: Glucose Point of Care 212 mg/dl (65-105)
[2023-02-02] MEDS: INSULIN ASPART (*BKC) 100 UNITS/ML SUB-Q ×2 (13:25→16:51)
[2023-02-02 13:43] LABS: Influenza A QL RT-PCR Negative (Negative); Influenza B QL RT-PCR Negative (Negative); RSV RNA, RT-PCR Negative (Negative); SARS-CoV-2 RNA PCR Negative
[2023-02-02 16:50] LABS: Glucose Point of Care 238 mg/dl (65-105)
--- NOTE | 2023-02-02 17:15 | PC.NURSE ---
This patient, Sharon David, was transferred to [[id number]] on 02/02/23 at 1715. Personal belongings sent with patient. Report given to [Kathy OSWALD]. Appropriate documentation sent with patient.
--- NOTE | 2023-02-02 17:25 | PC.NURSE ---
This patient, Sharon David, was received from [ICU [id number] ] on 02/02/23 at 1725. Patient oriented to unit policies and routines. No complaints at this time.
[2023-02-02] MEDS: ACETAMINOPHEN 325 MG TABLET 650 MG PO (18:28)
[2023-02-02 21:57] LABS: Glucose Point of Care 231 mg/dl (65-105)
[2023-02-03 05:56] VITALS: BP 121/76; PULSE 117; RESP 16; TEMP 36.6; O2SAT 98
[2023-02-03 06:27] LABS: Basophils Percent Auto 0.4 % (0.2-1.2); Eosinophils Absolute Auto 0.1 K/mm3 (0-0.3); Eosinophils Percent Auto 1.7 % (0-4.4); Hemoglobin 13.5 g/dL (14.0-18.0); Immature Granulocyte Absolute 0.05 K/mm3 (0.00-0.031); Immature Granulocyte Percent A 0.6 % (0-0.5); Lymphocytes Absolute Auto 1.84 K/mm3 (0.9-3.2); Lymphocytes Percent Auto 22.5 % (18.3-44.2); Mean Corpuscular HGB Conc 33.8 g/dl (32-36); Mean Corpuscular Hemoglobin 27.6 pg (26-34); Mean Corpuscular Volume 81.8 fl (80-100); Mean Platelet Volume 11.8 fl (7.4-10.4); Monocytes Absolute Auto 0.6 K/mm3 (0.1-0.6); Monocytes Percent Auto 7.1 % (2.6-8.5); Neutrophils Absolute Auto 5.5 K/mm3 (1.3-6.7); Neutrophils Percent Auto 67.7 % (45.5-73.1); Platelet Count Result 121 k/mm3 (150-375); Red Blood Count 4.89 M/mm3 (4.6-6.20); White Blood Count 8.2 K/mm3 (4.5-10.0)
[2023-02-03 06:46] LABS: Hemoglobin A1C 12.7 % (<5.7)
[2023-02-03 06:49] LABS: LDL Cholesterol Direct 63 mg/dL
[2023-02-03 06:53] LABS: Alanine Aminotransferase 28 U/L (6-50); Albumin Level 4.2 g/dL (3.5-5.1); Alkaline Phosphatase 100 U/L (38-126); Anion Gap 10 mmol/L (8-16); Aspartate Amino Transferase 26 U/L (17-59); Blood Urea Nitrogen 12 mg/dL (9-20); Calcium 8.7 mg/dL (8.4-10.2); Carbon Dioxide 24 mmol/L (22-30); Chloride 96 mmol/L (98-107); Cholesterol 322 mg/dL (0-200); Estimated CRCL calculation 213 ml/min; Estimated Glomerular Filt Rate > 60; Glucose 224 mg/dL (65-110); HDL Direct 26 mg/dL; Lipase 111 U/L (23-300); Magnesium 2.1 mg/dL (1.6-2.3); Potassium 3.9 mmol/L (3.4-5.0); Sodium 130 mmol/L (137-145)
[2023-02-03 06:59] LABS: Triglycerides 686 mg/dL (<150)
[2023-02-03 08:00] VITALS: PULSE 117; RESP 16; O2SAT 98
[2023-02-03 08:25] LABS: Glucose Point of Care 210 mg/dl (65-105)
[2023-02-03] MEDS: PANTOPRAZOLE 40 MG TABLET PO (09:16)
[2023-02-03] MEDS: metFORMIN HCL 500 MG TABLET PO (09:16)
[2023-02-03] MEDS: FLUTICASONE PROPIONATE 0.05% NA SPR 16 GM BTL (*BKC) 1 SPRAY NASAL (09:16)
[2023-02-03] MEDS: ENOXAPARIN 40 MG/0.4 ML SYRINGE SUB-Q (09:17)
[2023-02-03] MEDS: INSULIN ASPART (*BKC) 100 UNITS/ML SUB-Q ×2 (09:20→12:31)
[2023-02-03] MEDS: INSULIN GLARGINE (*BKC) 100 UNITS/ML 25 UNITS SUB-Q (09:20)
[2023-02-03 09:25] LABS: Glucose Point of Care 369 mg/dl (65-105)
--- NOTE | 2023-02-03 09:34 | PC.NURSE ---
This RN taught Patient how to use blood glucose machine, lancets, strips. Patient was able to teach back and go through the step of taking his own blood sugar. Patient used lancet, strips and machine accurately. Patient verbalized understanding and feels he is able to manage at home outpatient. Will print out additional resources and DM Educator has been consulted. Priscilla Elliott RN
[2023-02-03 11:37] LABS: Glucose Point of Care 229 mg/dl (65-105)
[2023-02-03 13:48] VITALS: BMI 31.3
[2023-02-03 14:19] VITALS: BP 141/66; PULSE 99; RESP 16; TEMP 36.4; O2SAT 99
--- NOTE | 2023-02-03 15:31 | PM.DS ---
DS: Admitting Diagnosis Discharge Date 02/03/23 Admitting Diagnosis Abdominal pain DS: Discharge Diagnosis Discharge Diagnosis (1) Acute pancreatitis: Code(s): K85.90 - Acute pancreatitis without necrosis or infection, unspecified Status: Acute (2) Fever: Code(s): R50.9 - Fever, unspecified Status: Acute (3) Hypertriglyceridemia: Code(s): E78.1 - Pure hyperglyceridemia Status: Acute (4) New onset type 2 diabetes mellitus: Code(s): E11.9 - Type 2 diabetes mellitus without complications Status: Acute (5) Leukocytosis: Code(s): D72.829 - Elevated white blood cell count, unspecified Status: Acute (6) Duodenitis: Code(s): K29.80 - Duodenitis without bleeding Status: Acute DS: Summary Hospital Course Reason for hospitalization: 37yo male here for abdominal pain found to have pancreatitis, hyperTG and DM. Please see H&P for details Hospital Course: Patient presents with abdominal pain. CT Abdomen/pelvis shows?acute interstitial edematous pancreatitis with acute peripancreatic fluid collection. Differential includes duodenitis. RUQ US was normal. LFTS had been normal but AST up to 63 and TB 2.7 one time. Repeat values normalized. Lipase 545 on admission and trended to normal on recheck. Triglyceride level was 2606 on presentation felt related to uncontrolled DM. Acute pancreatitis likely secondary to hypertriglyceridemia although alcohol is a possibility. Treated with insulin infusion and IV fluids. Repeat TG down to 686. He did have a one time fever to 102.9. CXR was clear. BCx NGTD. No symptoms of UTI. COVID, influenza and RSV negative. [place] fever was related to the pancreatitis. No recurrent fevers and not treated with abx. Abdominal pain improved and diet started. He was advanced and tolerated this well. He was switched to lantus from the insulin drip. His A1c 12.7. He was seen by hydro sprayer operator and rail track layer. He overall did well and was able to be discharged home on 02/03/23. Status at Discharge Cognitive/behavioral status at discharge: Stable Time Spent with Patient Time attestation: Total time spent providing and/or coordinating discharge services: 35 minutes Time spent: Greater than 30 minutes Exam Narrative: AF 97.6 141/66 99 16 99% ra Gen - NARD Chest - CTA bilaterally, nml RR CV - RRR S1/S2 Abd - Soft, NT/ND, +BS Ext - No pedal edema Psych - Nml mood and affect Skin - Warm and dry DS: Data Data Completed and Pending Labs on day of discharge: Labs from last 24 hours 02/03/23 02/03/23 02/03/23 11:34 09:12 08:08 WBC RBC Hgb Hct MCV MCH MCHC RDW Plt Count MPV Immature Gran % (Auto) Neut % (Auto) Lymph % (Auto) [place] % (Auto) Eos % (Auto) Baso % (Auto) Lymph # (Auto) [place] # (Auto) Eos # (Auto) Baso # (Auto) Abs Immat Gran (auto) Absolute Neuts (auto) Absolute Nucleated RBC Nucleated RBC % Sodium Potassium Chloride Carbon Dioxide Anion Gap BUN Creatinine Estim Creat Clear Calc Estimated GFR Glucose POC Capillary Glucose 229 H 369 H 210 H Hemoglobin A1c Calcium Magnesium Total Bilirubin AST ALT Alkaline Phosphatase Total Protein Albumin Triglycerides Cholesterol LDL Cholesterol Direct HDL Direct Lipase 02/03/23 02/03/23 02/03/23 06:02 06:02 06:02 WBC 8.2 RBC 4.89 Hgb 13.5 L Hct 40.0 L MCV 81.8 MCH 27.6 D MCHC 33.8 RDW 15.0 H Plt Count 121 L MPV 11.8 H Immature Gran % (Auto) 0.6 H Neut % (Auto) 67.7 Lymph % (Auto) 22.5 [place] % (Auto) 7.1 Eos % (Auto) 1.7 Baso % (Auto) 0.4 Lymph # (Auto) 1.84 [place] # (Auto) 0.6 Eos # (Auto) 0.1 Baso # (Auto) 0.0 Abs Immat Gran (auto) 0.05 H Absolute Neuts (auto) 5.5 Absolute Nucleated RBC 0.0 Nucleated RBC % 0.0 Sod
--- NOTE | 2023-02-10 10:38 | PC.NURSE ---
Blood cx are negative. Dr. Guillermo balderas.
[2023-02-14 11:00] LABS: T3 Free 2.8 pg/mL
== END 2023-02-03 17:00 | disposition home or self-care (01) | DRG 282 ==
LOC: ANHED 17:14 → ANHICU 20:03 → ANH3MEDSUR 02-02 17:09
PROVIDERS: Internal Medicine; Physician Assistant; Admitting Provider Hospitalist; Emergency Provider Emergency Medicine; Visit Provider Internal Medicine
DX: K85.80 Other acute pancreatitis without necrosis or infection (principal); K85.20 Alcohol induced acute pancreatitis without necrosis or infection; R65.10 Systemic inflammatory response syndrome (SIRS) of non-infectious origin without acute organ dysfunction; E87.8 Other disorders of electrolyte and fluid balance, not elsewhere classified; D72.829 Elevated white blood cell count, unspecified; E11.9 Type 2 diabetes mellitus without complications; E78.1 Pure hyperglyceridemia; K29.80 Duodenitis without bleeding; R50.9 Fever, unspecified; Z20.822 Contact with and (suspected) exposure to COVID-19; R01.1 Cardiac murmur, unspecified
CPT/HCPCS: 36415; 71045; 74177; 76705; 80048; 80053; 80061; 81001; 82948; 83036; 83690; 83735; 84100; 84132; 84439; 84443; 84478; 84480; 85025; 85027; 87040; 87637; 93306; 96361; 96374; 96375; 99285; A9270; C9113; G0378; J0131; J1170; J1650; J1815; J2270; J3475; J3480; J7030; J7040; J7120; Q9967